=== PATIENT | male | born 1970 | race Caucasian/White ===

== ENCOUNTER 2021-02-24 15:32 | Emergency (ER) | payer OTHER, MEDICAID ==
[~2021-02-24] VITALS: Ht 180.3 cm; Wt 77.0 kg
[2021-02-24 15:40] VITALS: BP 125/79
[2021-02-24] MEDS ORDERED: CEFTRIAXONE SODIUM 1 G/VIAL IM ONE (18:30)
[2021-02-24] MEDS ORDERED: SULFAMETHOXAZOLE/TRIMETHOPRIM 800/160MG TABLET PO ONE (18:30)
[2021-02-24] MEDS ORDERED: LIDOCAINE HCL 1% 20ML VIAL (Pyxis) INJ INFIL ONE (18:30)
[2021-02-24] MEDS ORDERED: SULF1TAB48 MT (19:12)
[2021-02-24] MEDS ORDERED: CEPH500C2 MT (19:12)
[2021-02-24] MEDS ORDERED: LIDOCAINE HCL/PF 1% 10 MG/ML 5ML VIAL IJ NR (19:44)
== END 2021-02-24 20:23 | disposition home or self-care (01) ==
LOC: ER 15:32
DX: L03.311 Cellulitis of abdominal wall (principal); F17.290 Nicotine dependence, other tobacco product, uncomplicated; Z98.890 Other specified postprocedural states
CPT/HCPCS: 96372; 99283; 99406; J0696; J3490

== ENCOUNTER 2022-06-26 18:08 | Emergency (ER) | payer MEDICAID, OTHER ==
[~2022-06-26] VITALS: Ht 185.4 cm; Wt 89.0 kg
[~2022-06-26 18:08] MED LIST: CEPH500C2 MT; SULF1TAB48 MT
[2022-06-26 19:52] LABS: CLARITY URINE CLEAR (CLEAR); COLOR URINE YELLOW (YELLOW); KETONES URINE 1+ (NEGATIVE); LEUKOCYTE ESTERASE URINE NEGATIVE (NEGATIVE); NITRITE URINE NEGATIVE (NEGATIVE); OCCULT BLOOD URINE NEGATIVE (NEGATIVE); PROTEIN URINE NEGATIVE (NEGATIVE); SPECIFIC GRAVITY URINE 1.011 (1.005-1.030); UROBILINOGEN URINE 0.2 E.U./dL (0.2-1.0)
[2022-06-26] MEDS ORDERED: LORAZEPAM 0.5MG TABLET PO ONE (20:00)
[2022-06-26 20:04] LABS: *AMPHETAMINES SCREEN URINE NEGATIVE (NEGATIVE); *BARBITURATES SCREEN URINE NEGATIVE (NEGATIVE); *BENZODIAZEPINES SCREEN URINE NEGATIVE (NEGATIVE); *COCAINE SCREEN URINE NEGATIVE (NEGATIVE); CANNABINOID URINE SCREEN PRESUMTIVE POSITIVE (NEGATIVE); METHADONE URINE SCREEN NEGATIVE (NEGATIVE); OPIATES URINE SCREEN NEGATIVE (NEGATIVE); PHENCYCLIDINE URINE SCREEN NEGATIVE (NEGATIVE)
[2022-06-26 20:46] LABS: BASOPHILS % 0.5 % (0.0-2.0); EOSINOPHILS % 0.7 % (0.0-5.0); HEMATOCRIT. 47.3 % (42.0-52.0); HEMOGLOBIN. 16.2 g/dL (14.0-18.0); LYMPHOCYTES % 18.9 % (20.0-50.0); MEAN CORPUSCULAR HEMOGLOBIN 30.8 pg (28.0-32.0); MEAN CORPUSCULAR VOLUME 90.1 fL (80.0-94.0); MEAN PLATELET VOLUME 8.6 fl (7.4-10.4); MONOCYTES % 5.8 % (2.0-8.0); NEUTROPHILS % 74.1 % (40.0-76.0); PLATELET 328 x1000/uL (130-400); RED BLOOD CELL COUNT 5.25 mill/uL (4.7-6.1); RED CELL DISTRIBUTION WIDTH 13.6 % (11.6-14.6)
[2022-06-26 20:54] LABS: CHLORIDE 107 mEq/L (98-107)
[2022-06-26 21:02] LABS: ETHANOL BLOOD < 10 mg/dL
[2022-06-26] MEDS ORDERED: DIPHENHYDRAMINE 25MG CAPSULE PO ONE (21:30)
[2022-06-27] MEDS ORDERED: QUETIAPINE FUMARATE 50MG TABLET PO SCH (00:15)
[2022-06-27] MEDS ORDERED: LORAZEPAM 2MG/ML CPJ IM ONE (01:15)
[2022-06-27] MEDS ORDERED: HALOPERIDOL LACTATE 5MG/ML VIAL IM ONE ×2 (01:15→15:30)
[2022-06-27] MEDS: DIVALPROEX SODIUM 500MG ER TABLET PO SCH ×2 (09:59→16:44)
[2022-06-27] MEDS: OLANZAPINE 5MG TABLET ODT PO SCH ×2 (09:59→16:44)
[2022-06-28] MEDS: OLANZAPINE 5MG TABLET ODT PO SCH ×2 (09:38→17:28)
[2022-06-28] MEDS: DIVALPROEX SODIUM 500MG ER TABLET PO SCH ×2 (09:38→17:28)
[2022-06-28] MEDS ORDERED: IBUPROFEN 400MG TABLET PO ONE (12:00)
[2022-06-28] MEDS ORDERED: ACETAMINOPHEN 325MG TABLET PO ONE (14:30)
[2022-06-28] MEDS ORDERED: LORAZEPAM 1MG TABLET PO ONE (14:45)
[2022-06-29] MEDS ORDERED: LORAZEPAM 1MG TABLET PO ONE (04:15)
[2022-06-29] MEDS ORDERED: LORAZEPAM 1MG TABLET PO NR (04:30)
[2022-06-29] MEDS: DIVALPROEX SODIUM 500MG ER TABLET PO SCH ×2 (09:00→17:02)
[2022-06-29] MEDS: OLANZAPINE 5MG TABLET ODT PO SCH (09:00)
[2022-06-29] MEDS: PAROXETINE HCL 10MG TABLET PO SCH (11:15)
[2022-06-29] MEDS ORDERED: QUETIAPINE FUMARATE 200MG TABLET PO SCH ×2 (21:00→21:47)
[2022-06-30] MEDS ORDERED: OLANZAPINE 5MG TABLET ODT PO SCH (09:00)
[2022-06-30 10:19] VITALS: BP 123/86
[2022-06-30] MEDS: PAROXETINE HCL 10MG TABLET PO SCH (10:38)
[2022-06-30] MEDS: DIVALPROEX SODIUM 500MG ER TABLET PO SCH (10:38)
[2022-06-30] MEDS ORDERED: QUETIAPINE FUMARATE 50MG TABLET PO SCH (21:00)
== END 2022-06-30 12:45 | disposition home or self-care (01) ==
LOC: EDBD 18:08 → ER 18:08
DX: F25.0 Schizoaffective disorder, bipolar type (principal); R45.1 Restlessness and agitation; Z20.822 Contact with and (suspected) exposure to COVID-19; R03.0 Elevated blood-pressure reading, without diagnosis of hypertension; Z75.1 Person awaiting admission to adequate facility elsewhere; Z79.899 Other long term (current) drug therapy
CPT/HCPCS: 36415; 80053; 80305; 80307; 80320; 80329; 81003; 85025; 87426; 96372; 99291; C9803; Q0163; Z7610; G0480

== ENCOUNTER 2022-11-22 15:07 | Emergency (ER) | payer OTHER ==
[~2022-11-22] VITALS: Ht 182.9 cm; Wt 75.0 kg
[2022-11-22 15:15] VITALS: O2SAT 98
[2022-11-22] MEDS ORDERED: OLANZAPINE 10 MG/VIAL IM STA (15:18)
[2022-11-22 19:38] LABS: BASOPHILS % 0.5 % (0.0-2.0); HEMATOCRIT. 39.7 % (42.0-52.0); HEMOGLOBIN. 13.5 g/dL (14.0-18.0); LYMPHOCYTES % 33.5 % (20.0-50.0); MEAN CORPUSCULAR HEMOGLOBIN 31.6 pg (28.0-32.0); MEAN CORPUSCULAR VOLUME 92.5 fL (80.0-94.0); MEAN PLATELET VOLUME 7.7 fl (7.4-10.4); MONOCYTES % 9.4 % (2.0-8.0); NEUTROPHILS % 54.6 % (40.0-76.0); PLATELET 295 x1000/uL (130-400); RED BLOOD CELL COUNT 4.29 mill/uL (4.7-6.1); RED CELL DISTRIBUTION WIDTH 12.9 % (11.6-14.6)
[2022-11-22 19:46] LABS: CHLORIDE 110 mEq/L (98-107)
[2022-11-22 19:56] LABS: ETHANOL BLOOD < 10 mg/dL (-10)
[2022-11-22 22:30] VITALS: BP 131/71; PULSE 88; RESP 18; TEMP 98.2
[2022-11-23] MEDS ORDERED: POTASSIUM CHLORIDE 20MEQ TABLET SR PO NR (06:30)
== END 2022-11-23 13:14 | disposition home or self-care (01) ==
LOC: ER 15:07
DX: F29 Unspecified psychosis not due to a substance or known physiological condition (principal); F31.9 Bipolar disorder, unspecified; F20.9 Schizophrenia, unspecified; F14.10 Cocaine abuse, uncomplicated; F12.10 Cannabis abuse, uncomplicated; F15.10 Other stimulant abuse, uncomplicated
CPT/HCPCS: 80053; 80320; 85025; 36415; 96372; 99291; J3490; Z7610; G0480